=== PATIENT | female | born 2000 | race Caucasian/White ===

== ENCOUNTER 2021-01-19 21:16 | Emergency (ER) | payer OTHER ==
[~2021-01-19] VITALS: Ht 165.1 cm; Wt 80.0 kg
[2021-01-19] MEDS ORDERED: DIPHENHYDRAMINE 50MG CAPSULE PO ONE (22:15)
[2021-01-19] MEDS ORDERED: FAMOTIDINE 20MG TABLET PO ONE (22:15)
[2021-01-19] MEDS ORDERED: EPIN0.3P3 IM (22:39)
[2021-01-19] MEDS ORDERED: PREDNISONE 20MG TABLET PO ONE (22:45)
[2021-01-19] MEDS ORDERED: ACETAMINOPHEN 325MG TABLET PO ONE (23:15)
[2021-01-20 01:44] VITALS: BP 128/79
== END 2021-01-20 01:54 | disposition home or self-care (01) ==
LOC: ER 21:16
DX: T78.40XA Allergy, unspecified, initial encounter (principal); I49.9 Cardiac arrhythmia, unspecified; Z91.018 Allergy to other foods; X58.XXXA Exposure to other specified factors, initial encounter
CPT/HCPCS: 93005; 99284; J7512; Q0163